=== PATIENT | female | born 1950 | race Caucasian/White ===

== ENCOUNTER 2017-09-18 07:26 | Day surgery (SDC) | payer OTHER ==
[2017-09-18] MEDS ORDERED: PROPOFOL 500 MG/50 ML EMU IV ONE (08:58)
[2017-09-18 09:51] VITALS: O2SAT 99
[2017-09-18 10:04] VITALS: BP 123/66; PULSE 60; RESP 18; TEMP 97.4
== END 2017-09-18 10:30 | disposition home or self-care (01) | DRG 951 ==
LOC: SURG 07:26
PROVIDERS: ATTEND Surgery
DX: Z12.11 Encounter for screening for malignant neoplasm of colon (principal)
CPT/HCPCS: J2704